=== PATIENT | female | born 1985 ===

== ENCOUNTER 2021-06-04 09:38 | Day surgery (SDC) | payer OTHER ==
[~2021-06-04 09:38] MED LIST: CLONAZEPAM0.5 MG PO; DEPAKOTE ER500 MG PO; PAXIL20 MG PO; PROAIR RESPICL90 MCG IH; WELLBUTRIN SR100 MG PO
== END 2021-06-04 17:30 | disposition home or self-care (01) ==
LOC: CIR.AMB 09:38
PROVIDERS: ATTEND Obstetrics & Gynecology Obstetrics
DX: N85.8 Other specified noninflammatory disorders of uterus (principal)